=== PATIENT | female | born 1975 | race Hispanic/Latino ===

== ENCOUNTER 2017-03-23 07:37 | Inpatient (IN) | payer OTHER ==
[2017-03-23 08:14] VITALS: BMI 38.2
[2017-03-23] MEDS ORDERED: Lactated Ringer's 1,000 ML IV SCH (08:48)
[2017-03-23] MEDS: Lactated Ringer's 1,000 ML IV SCH ×2 (09:00→15:00)
[2017-03-23 09:46] LABS: BASO % 0.2 % (0.0-2.0); EOS # 0.1 K/uL (0.0-0.7); EOS % 1.7 % (0.0-4.0); HEMATOCRIT 33.5 % (34.0-47.0); LYMPH # 2.4 K/uL (1.0-4.3); LYMPH % 34.5 % (20.0-40.0); MEAN CELL VOLUME 90.5 fl (81.0-99.0); MEAN CORPUSCULAR HEMOGLOBIN 30.8 pg (27.0-31.0); MEAN CORPUSCULAR HGB CONC 34.1 g/dL (33.0-37.0); MEAN PLATELET VOLUME 7.7 fl (7.2-11.7); MONO # 0.7 K/uL (0.0-0.8); MONO % 9.5 % (0.0-10.0); NEUT # 3.8 K/uL (1.8-7.0); NEUT % 54.1 % (50.0-75.0); RED CELL DISTRIBUTION WIDTH 14.4 % (11.5-14.5)
[2017-03-23] MEDS ORDERED: Lidocaine 1% Inj (20ml) ONE (11:47)
[2017-03-23] MEDS ORDERED: Oxytocin 30 units/LR 500ML 30 U/500 ML BAG IV ONE ×3 (11:48→23:40)
[2017-03-23] MEDS ORDERED: Oxytocin 30 units/LR 500ML 30 U/500 ML BAG IV SCH ×2 (15:08→23:38)
--- NOTE | 2017-03-23 15:49 | HP ---
HISTORY OF PRESENT ILLNESS: This is a 41-year-old G8, P7-0-0-6 at 41 weeks with an EDC of 03/16/2017 based on LMP consistent with a 20-week ultrasound, who presents for postdates induction. The patient had her care at [facility] with Dr. Floyd. She denies contractions, vaginal bleeding, leaking of fluid and reports good positive movement. This is complicated by the fact that the patient is advanced maternal age. 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 She is currently on 225 mcg of thyroid medication. The patient also has a history of a baby with trisomy 13, who on day of life #2. MFM ultrasound also revealed short nasal bone. The patient declined genetic counseling. The patient was also a late registrant at 19 weeks. Her BMI is 36. The patient received her Tdap at 36 plus 4 weeks, and on 02/20/2017, her GBS was negative. PAST MEDICAL HISTORY: Hypothyroidism. PAST SURGICAL HISTORY: Laparoscopic dermoid removal on left ovary, which was converted to an ELAP due to a nicked colon in September 1998. In September 1999, she had an open appendectomy. In 09/26/2014, she had a sling placed. MEDICATIONS: She is on levothyroxine 225 mcg and vitamins. 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 She denies any history of any abnormal Pap smears and denies any STDs. FAMILY HISTORY: Her father is alive with heart disease. Her mother is alive with borderline hypertension. MGF and PFG with dm. Maternal cousin with breast cancer, another maternal cousin alive w/ breast cancer, maternal aunt with uterine or ovarian cancer (?). Paternal aunt with breast cancer. The patient reports that she and her mother tested and was negative for BRCA. PAST OB HISTORY: In December 1997, she underwent a vaginal delivery at 42 weeks of a female. In July 1999, she underwent a vaginal delivery at 42 weeks of a male. In October 2000, she underwent a vaginal delivery at 38 plus weeks of a female. In January 2003, she underwent a vaginal delivery at 41 weeks of a female. In January 2007, she underwent a vaginal delivery at 38 weeks of a male, baby had trisomy 13 and day of life #2. In March 2011, she underwent vaginal delivery of a male . She was induced for that baby and GBS was positive and in December 2012, she underwent a vaginal delivery of a male at 41 weeks and that labor was induced as well. SOCIAL HISTORY: The patient denies tobacco, alcohol, and illicit drug use. LABS: Blood type is O positive, antibody screen is negative, Pap smear was negative, HPV negative, hemoglobin electrophoresis was normal, gonorrhea and chlamydia were negative, RPR was nonreactive, rubella immune. HIV negative, hepatis B surface antigen negative. Panorama was low risk, female fetus. On 01/02/2017, HIV was negative, one hour Glucola was 125 and her RPR was nonreactive. On 02/01/2017, urine culture was negative. On 02/20/2017, GBS was negative. Leticia Horizon 4 carrier screen was negative. PHYSICAL EXAMINATION: GENERAL: The patient appears comfortable lying in bed. VITAL SIGNS: Afebrile. Vital signs stable. ABDOMEN: Soft, nontender. Gravid. EXTREMITIES: Nontender. VAGINAL EXAM: 1, long and -3 yesterday in the office. External monitoring: Baseline is in the 130s with moderate variability and positive accelerations. Tocodynamometer: small contractions that appears just to be irritability. ASSESSMENT AND PLAN: This is a 41-year-old G8, P7-0-0-6 at 41 weeks for induction of labor for postdates. heart tracing is reassuring. Group B Strep is negative. Will start the induction with 50 mcg of oral misoprostol. Hayley Floyd MD [facility]
[2017-03-23] MEDS ORDERED: Bupivacaine HCl 0.25% PF (10 ml) Inj ONE (20:35)
[2017-03-23] MEDS ORDERED: Fentanyl/Bupivacaine HCl 250 ML EPI ONE (20:35)
--- NOTE | 2017-03-23 21:46 | OBADHP ---
Datetime: 03/23/2017 21:43 Admit Comment, IP Provider: 41 yo at 41 wks for induction of labor for post-dates Will start induction w/ oral misoprostol FHT reassuring. GBS negative. (ES) Abdomen - PN: Normal Neurologic - PN: Normal HEENT - PN: Normal General - PN: Normal FHR - Baseline A Provider: 130 Vital Signs Provider: Reviewed NICHD Variability Prov Fetus A: Moderate 6-25bpm NICHD Accel Fetus A IP Provider: [id number] FHR Category Provider Fetus A: Category I NICHD Decel Fetus A IP Provider: None Dilatation, Provider: 1 Effacement, Provider: 0 Station, Provider: -3 Genitourinary Exam: Normal IP Adm Impression: , intrauterine IP Admit Plan: Initiate labor induction protocol
--- NOTE | 2017-03-23 21:55 | OBPN ---
Datetime: 03/23/2017 21:46 IP Progress Impression: Normal progression of labor IP Procedures: Artificial ROM; Sterile Vag Exam IP Progress Plan: Continue present management Membranes, Provider: Ruptured Amniotic Fluid Color, Provider: Clear Contraction Comments Provider: 2-3 FHR - Baseline A Provider: 130 IP Progress Note Comment: 41 yo at 41 wks for induction for post-dates on pitocin s/p AROM GBS negative, FHT reassuring Anticipate VD NICHD Accel Fetus A IP Provider: [id number] FHR Category Provider Fetus A: Category I NICHD Variability Prov Fetus A: Moderate 6-25bpm Dilatation, Provider: 4-5 Effacement, Provider: 100 Station, Provider: -2 NICHD Decel Fetus A IP Provider: None Datetime: 03/23/2017 21:43 Vital Signs Provider: Reviewed
[2017-03-23] MEDS ORDERED: Oxycodone/Acetaminophen 5/325 mg Tab PO PRN (23:38)
[2017-03-23] MEDS ORDERED: Benzocaine/Menthol SPRAY TOP PRN (23:38)
--- NOTE | 2017-03-23 23:46 | OBDS ---
DELIVERY PERSONNEL Delivery Doctor: Abigail Floyd MD Tactical Response Group Officer: Pilar TOLENTINO / Saray TOLENTINO Anesthesiologist: Heather Richardson MD MATERNAL INFORMATION Delivery Anesthesia: Epidural Medications in Delivery: Pitocin Placenta Cultured: No Maternal Complications: None Provider Comments: Pt progressed to complete and pushed to deliver a viable female infant through cl ear fluid at 2309. Apgars 9 and 9. Wt 9#8.7. Mouth and nares bulb-suctioned. Infant placed on mot her's abdomen. Cord clamped and cut. Cord blood collected. Placenta delivered spontaneously at 231 3. Second degree tear repaired w/ 2-0 rapide and 3-0 v. Rectum intact. Pt and baby tolerated the p rocedure well. EBL 200mL LABOR SUMMARY EDC: 03/16/2017 00:00 No. Babies in Womb: 1 Attempted: No Labor Anesthesia: Epidural LABOR INFORMATION Reason for Induction: Postterm Onset of Labor: 03/23/2017 20:20 Complete Dilatation: 03/23/2017 23:05 Cervical Ripening Agents: Cytotec @ 50 Oxytocin: Augmentation Group B Beta Strep: Negative (Annotations: 02/20/2017) Antibiotics # of Doses: N/A Steroids Given: None Reason Steroids Not Administered: Not Applicable MEMBRANES Membranes Rupture Method: Artificial Rupture of Membranes: 03/23/2017 21:39 Amniotic Fluid Color: Clear Amniotic Fluid Amount: Moderate Amniotic Fluid Odor: Normal STAGES OF LABOR Stage 1 hrs: 2 Stage 1 min: 45 VAGINAL DELIVERY Laceration Repair Note: Second degree tear repaired w/ 2-0 rapide and 3-0 v. Rectum intact. IDENTIFICATION/MEDS BABY A ID Band Number: [id number]
[2017-03-24] MEDS ORDERED: Benzocaine/Menthol SPRAY TOP PRN (01:29)
[2017-03-24] MEDS ORDERED: Oxycodone/Acetaminophen 5/325 mg Tab PO PRN (01:29)
[2017-03-24 07:11] LABS: BASO % 0.1 % (0.0-2.0); EOS # 0.1 K/uL (0.0-0.7); EOS % 0.6 % (0.0-4.0); HEMATOCRIT 30.2 % (34.0-47.0); LYMPH # 2.3 K/uL (1.0-4.3); LYMPH % 23.3 % (20.0-40.0); MEAN CELL VOLUME 90.6 fl (81.0-99.0); MEAN CORPUSCULAR HEMOGLOBIN 30.9 pg (27.0-31.0); MEAN CORPUSCULAR HGB CONC 34.1 g/dL (33.0-37.0); MEAN PLATELET VOLUME 7.7 fl (7.2-11.7); MONO # 0.9 K/uL (0.0-0.8); MONO % 9.4 % (0.0-10.0); NEUT # 6.7 K/uL (1.8-7.0); NEUT % 66.6 % (50.0-75.0)
--- NOTE | 2017-03-24 16:57 | OBPPN ---
Datetime: 03/24/2017 16:53 PP Pain Prov: Within normal limits PP Nausea Prov: Denies PP Flatus Prov: Yes PP Breasts Prov: Not Done PP Heart Prov: Normal PP Lungs Prov: Normal PP Abdomen/Uterus Prov: Normal PP Lochia Prov: Normal PP Vulva/Perineum Prov: Not Done PP CVA Tenderness Prov: Normal PP Extremities Prov: Normal PP Progress Prov: Normal PP Impression Prov: Normal progression PP Plan Prov: Continue present management PP Progress Note Prov: Patient doing well reports minimal lochia pain controlled with Motrin Vital signs stable afebrile Uterus firm below the umbilicus Extremities no Homans Post day #1 Ambulate, regular diet, analgesics she is needed, anticipate discharge in a.m. Vital Signs Provider PP: Reviewed
--- NOTE | 2017-03-25 08:09 | OBDCSUM ---
Datetime: 03/24/2017 16:55 Discharge Instructions, Provider: Routine instructions given Disch Referrals: None Contraception discussed, Prov: Yes Discharge Comment, Provider: doing well
[2017-03-26 02:54] VITALS: BP 111/62; PULSE 60; RESP 20; TEMP 98.3; O2SAT 99
== END 2017-03-25 22:45 | disposition home or self-care (01) | DRG 373 ==
LOC: H.EROB2 07:37 → H.L&D 08:48 → H.OB/GYN 03-24 01:16
PROVIDERS: ADMIT Obstetrics & Gynecology; ATTEND Obstetrics & Gynecology
PROC: 10E0XZZ Delivery of Products of Conception, External Approach (ICD-10-PCS; principal; 2017-03-23)
PROC: 0KQM0ZZ Repair Perineum Muscle, Open Approach (ICD-10-PCS; 2017-03-23)
PROC: 4A1HXCZ Monitoring of Products of Conception, Cardiac Rate, External Approach (ICD-10-PCS; 2017-03-23)
DX: O48.0 Post-term pregnancy (principal); O70.1 Second degree perineal laceration during delivery; Z3A.41 41 weeks gestation of pregnancy; Z37.0 Single live birth